=== PATIENT | female | born 1995 | race Two or more races ===

== ENCOUNTER 2023-09-06 13:18 | Emergency (ER) | payer OTHER ==
[~2023-09-06] VITALS: Ht 157.5 cm; Wt 57.9 kg
== END 2023-09-06 15:38 | disposition home or self-care (01) ==
LOC: ER 13:18
DX: S90.454A Superficial foreign body, right lesser toe(s), initial encounter (principal); X58.XXXA Exposure to other specified factors, initial encounter; Y93.89 Activity, other specified; Y92.89 Other specified places as the place of occurrence of the external cause; Y99.8 Other external cause status; R53.81 Other malaise